=== PATIENT | male | born 1935 | race Caucasian/White ===

== ENCOUNTER 2016-12-15 00:48 | Inpatient (IN) ==
[2016-12-15] MEDS ORDERED: diphenhydrAMINE CAP 25 MG CAPSULE PO PRN (01:34)
[2016-12-15] MEDS ORDERED: DOCUSATE SODIUM 100 MG CAPSULE PO PRN (01:34)
[2016-12-15] MEDS ORDERED: MORPHINE 2 MG/1 ML SYRINGE IV PRN ×2 (01:34→09:31)
[2016-12-15] MEDS ORDERED: ONDANSETRON 4 MG/2 ML VIAL IV PRN (01:34)
[2016-12-15] MEDS ORDERED: ZALEPLON 5 MG CAPSULE PO PRN (01:34)
[2016-12-15] MEDS ORDERED: guaiFENesin/DM ER 600-30 MG TABLET PO PRN (01:34)
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
[2016-12-15 01:56] LABS: Basophils % 0.3 % (0.0-0.8); Eosinophils % 0.4 % (0.00-10.9); Hematocrit 27.7 VOL% (42.0-52.0); Hemoglobin 9.1 GM/DL (14.0-18.0); Immature Granulocytes % 3.6 %; Immature Granulocytes Absolute 0.27 #; Lymphocytes # 0.9 10*3/uL (1.4-4.0); Lymphocytes % 11.7 % (21.2-54.2); Mean Corpuscular HGB Conc 32.9 GM/DL (32-36); Mean Corpuscular Hemoglobin 36 PG (27-34); Mean Corpuscular Volume 108.6 FL (87-102); Mean Platelet Volume 11.7 FL (9.6-12.0); Monocytes # 0.7 10*3/uL (0.11-0.8); Neutrophils # 5.5 10*3/uL (1.4-7.4); Platelet Count 62 T/CUMM (130-400); Red Blood Count 2.55 MC/CUMM (3.8-5.5); Red Cell Distribution Width 14.9 % (9.3-17.3); White Blood Count 7.4 T/CUMM (4-12)
[2016-12-15] MEDS ORDERED: SODIUM CHLORIDE 0.45% 1,000 ML IV SCH (02:00)
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
[2016-12-15 02:19] LABS: Albumin 3.6 G/DL (3.4-5.0); Bilirubin,Total 0.6 MG/DL (0.2-1.0); Calcium 8.1 MG/DL (8.5-10.1); Osmolality,Calculated 296.1 MOS/KG (273-304); Potassium 3.6 MMOL/L (3.5-5.1)
[2016-12-15 02:31] LABS: Apearance,Urine CLEAR (Clear); Bilirubin,Urine Negative (Negative); Blood, Urine Negative (Negative); Glucose,Urine (UA) Negative (Negative); Ketones,Urine Negative (Negative); Nitrite,Urine Negative (Negative); Protein,Urine Negative; RBC,Urine 1 /HPF (0-4); Urine Color Straw (Yellow); Urine Specific Gravity 1.013 (1.001-1.035); Urine Urobilinogen < 2.0 EU/DL (0.2-1.0); WBC,Urine 3 /HPF (0-6)
[2016-12-15] MEDS ORDERED: SODIUM CHLORIDE 0.9% 250 ML IV PRN (04:00)
[2016-12-15 04:43] LABS: Lymphocytes 12 % (20-55); Segmented Neutrophils 81 % (50-85)
[2016-12-15 04:45] LABS: Band Neutrophils 1 % (0-10); Metamyelocytes 4 %; Total Cells Counted 100
[2016-12-15 04:52] LABS: Anisocytosis 1+; Platelet Estimate Decreased
[2016-12-15 07:00] LABS: INR 1.1; PT Patient Result 11.5 SECS
[2016-12-15 07:14] LABS: % Iron Saturation 39.5 % (18-50); Ferritin 97.1 ng/ml (26-388)
[2016-12-15 07:25] LABS: Folate 20.6 NG/ML (5.4-24.0)
--- NOTE | 2016-12-15 07:37 | EKG Report ---
Stationary ECG Study [facility] Test Date: 12/15/2016 7:37:45 AM Pat Name: JARETT RAJAN Department: Room: 323 Gender: M Etiology Teacher: : 1935 Requested by: José Antonio Gamboa Order Number: [id number] Reading MD: QUINN DRAKE Intervals [place] Rate: 80 P: 999 MO: 0 QRS: -17 QRSD: 90 T: 39 QT: 364 QTc: 400 Interpretive Statements SINUS RHYTHM WITH PACS ABNORMAL RHYTHM ECG Electronically Signed On 12-15-16 18:19:03 RADIOLOGICAL ENGINEER by QUINN DRAKE [email or web address]
[2016-12-15 07:53] LABS: Apearance,Urine CLEAR (Clear); Bilirubin,Urine Negative (Negative); Blood, Urine Negative (Negative); Glucose,Urine (UA) Negative (Negative); Ketones,Urine 5 mg/dL (Negative); Mucus,Urine Occasional /LPF (Occasional); Nitrite,Urine Negative (Negative); Protein,Urine Negative; RBC,Urine 1 /HPF (0-4); Urine Color Straw (Yellow); Urine Specific Gravity 1.009 (1.001-1.035); Urine Urobilinogen < 2.0 EU/DL (0.2-1.0); WBC,Urine 1 /HPF (0-6)
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
[2016-12-15] MEDS: PANTOPRAZOLE 40 MG TABLET PO SCH (08:11)
[2016-12-15] MEDS ORDERED: ROCURONIUM 100 MG/10 ML VIAL IV ONE (08:22)
[2016-12-15] MEDS ORDERED: LIDOCAINE 2% 5 ML VIAL ONE (08:22)
[2016-12-15] MEDS ORDERED: ONDANSETRON 4 MG/2 ML VIAL ONE (08:22)
[2016-12-15] MEDS ORDERED: ETOMIDATE 20 MG/10 ML VIAL IV ONE (08:22)
--- NOTE | 2016-12-15 08:37 | XRay Report ---
Portable chest Date:[12/15/2016] Clinical history: Respiratory preoperative evaluation Comparison: 01/30/2015 Technique: Portable AP sitting chest Findings: The heart is minimally enlarged with constipation would not. Expiratory chest with atelectasis at the lung bases and chronic scarring. Stable mediastinum and osseous structures. Impression: Expiratory chest. Chronic scarring with minimal atelectasis at the lung bases. Minimal cardiomegaly. PROCEDURE INTERPRETED AT [facility] DEPARTMENT OF RADIOLOGY Final Report Signed by: Dr. Ayleen Sandy
--- NOTE | 2016-12-15 08:39 | XRay Report ---
Exam: XR hip 2V LT Date: 12/15/2016 1:14 AM Comparison: 09/27/2009 Indication: Left hip pain after fall, hip deformity Technique: AP and lateral left hip Findings: Acute displaced left intertrochanteric femoral fracture. There is upward displacement of the distal fracture fragment. Old healed right pubic bone fractures. Minimal hip joint space narrowing. Impression: Acute displaced left intertrochanteric femoral fracture. Minimal D. ISABELL. Old healed right pubic bone fractures. PROCEDURE INTERPRETED AT [facility] DEPARTMENT OF RADIOLOGY Final Report Signed by: Dr. Ayleen Sandy
[2016-12-15] MEDS ORDERED: TRANEXAMIC ACID 1,000 MG/10 ML VIAL IV ONE (08:44)
[2016-12-15] MEDS ORDERED: BACITRACIN OINT 0.9 GM PACK TOP ONE (09:09)
[2016-12-15 09:15] LABS: Apearance,Urine CLEAR (Clear); Bilirubin,Urine Negative (Negative); Blood, Urine Large mg/dL (Negative); Glucose,Urine (UA) Negative (Negative); Ketones,Urine Negative (Negative); Nitrite,Urine Negative (Negative); Protein,Urine Negative; RBC,Urine 182 /HPF (0-4); Urine Color Straw (Yellow); Urine Specific Gravity 1.008 (1.001-1.035); Urine Urobilinogen < 2.0 EU/DL (0.2-1.0); WBC,Urine 3 /HPF (0-6)
--- NOTE | 2016-12-15 09:30 | Operative Note ---
Date of procedure: 12/15/16 Procedure: DIAGNOSIS: Left hip intertrochanteric fracture PROCEDURE: Left ORIF hip (CPT# 98940) SURGEON: Morgan ANESTHESIA: General PROCEDURE and FINDINGS: After adequate anesthesia was induced, the patient was placed on the fracture table. A provisional reduction was obtained. The limb was prepped and draped in the usual sterile fashion. Lateral approach to the proximal femur was made. Skin, subcutaneous tissue and iliotibial band were incised. Vastus lateralis was elevated from the intramuscular septum and lateral aspect of the femur. Guidepin was placed, overreamed, and tapped. A 90 mm hip screw was placed followed by a 135 degree 3-hole plate. Screw holes were filled. Wound was irrigated. Iliotibial band was repaired with O Vicryl [id number] sutures. Subcutaneous tissues were repaired deep with 2-0 Vicryl runner and superficially with 3-0 interrupted Vicryl suture. Chestnutridge were used to approximate the skin. Sterile occlusive dressing and bacitracin were applied. EBL: 20 mL Surgeon / Physician: Tremaine Mora Jr. Results - Labs CBC & BMP: 12/15/16 01:44 12/15/16 01:44
[2016-12-15] MEDS ORDERED: MAGNESIUM HYDROXIDE SUSP 30 ML UDCUP PO PRN (09:31)
--- NOTE | 2016-12-15 09:48 | XRay Report ---
Exam: XR hip 2V LT Date: 12/15/2016 12:00 AM Comparison: 12/15/2016 Indication: Compression left hip Technique: Fluoroscopy time of 31 seconds documented. AP and lateral C-arm films obtained. . Findings: The left intertrochanteric femoral fracture is in satisfactory position and alignment for healing after insertion of sideplate and screws Impression: Satisfactory internal fixation of the acute displaced left intertrochanteric femoral fracture. The fracture appears to be in satisfactory position and alignment for healing. PROCEDURE INTERPRETED AT [facility] DEPARTMENT OF RADIOLOGY Final Report Signed by: Dr. Ayleen Sandy
[2016-12-15] MEDS ORDERED: KETOROLAC 15 MG/1 ML VIAL ONE (09:59)
[2016-12-15] MEDS: KETOROLAC 15 MG/1 ML VIAL IV SCH ×3 (10:02→22:34)
[2016-12-15] MEDS: DEXT 5% NACL 0.45% KCL 40 MEQ 40 MEQ/1,000 ML BAG IV SCH (11:04)
--- NOTE | 2016-12-15 11:40 | Anesthesia ---
Anesthesia Post OP - Post Ansesthetic Evaluation Patient seen in post op: Yes Resp: within normal limits CV: within normal limits Mental: within normal limits Temp: within normal limits [id number]: within normal limits Nausea and Vomiting: within normal limits Pain: within normal limits
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
--- NOTE | 2016-12-15 12:47 | EKG Report ---
Stationary ECG Study [facility] Test Date: 12/15/2016 12:45:36 PM Pat Name: JARETT RAJAN Department: Room: 323 Gender: M Bridge Repair Crew Person: : 1935 Requested by: Tim Sloan Order Number: [id number] Reading MD: QUINN DRAKE Intervals [place] Rate: 70 P: 999 [place]: 0 QRS: -14 QRSD: 82 T: 40 QT: 397 QTc: 418 Interpretive Statements NORMAL SINUS RHYTHM Electronically Signed On 12-15-16 18:31:46 [employer] SALES REPRESENTATIVE by QUINN DRAKE [id number]
[2016-12-15] MEDS ORDERED: SODIUM CHLORIDE 0.9% 1,000 ML IV ONE (13:30)
[2016-12-15] MEDS ORDERED: SEVOFLURANE 1 UNIT/15 MINUTE INH ONE (13:30)
[2016-12-15] MEDS ORDERED: fentaNYL 100 MCG/2 ML VIAL ONE (13:30)
[2016-12-15] MEDS ORDERED: SODIUM CHLORIDE 0.9% 100 ML IV ONE (13:30)
[2016-12-15] MEDS ORDERED: MIDAZOLAM 2 MG/2 ML VIAL ONE (13:30)
--- NOTE | 2016-12-15 15:07 | Orthopedic Progress Note ---
Assessment and Plan (1) Intertrochanteric fracture of left hip Status: Acute Current Visit: Yes Qualifiers: Encounter type: initial encounter Fracture type: closed Qualified Code(s) : S72.142A - Displaced intertrochanteric fracture of left femur, initial encounter for closed fracture Orthopedics - Subjective Interval history: Mr. Waldrop is comfortable postoperatively. Left lower extremity shows dressing is dry. Patient is neurovascularly unchanged. Plan: Continue with postoperative orders. Exam - Constitutional Vitals: Period Temp Pulse Resp BP Sys/Callahan Pulse Ox Last 24 Hr 97.2 F-99.4 F 58-93 14-20 109-149/49-89 92-100 Results - Labs CBC & BMP: 12/15/16 01:44 12/15/16 01:44 Quality Measures - VTE Contraindication to Pharmacological VTE Prophylaxis: Thrombocytopenia - Stroke Onset of Symptoms Date: 12/15/16
[2016-12-16] MEDS: KETOROLAC 15 MG/1 ML VIAL IV SCH (03:46)
[2016-12-16] MEDS: DEXT 5% NACL 0.45% KCL 40 MEQ 40 MEQ/1,000 ML BAG IV SCH (03:47)
[2016-12-16 05:37] LABS: Basophils % 0.4 % (0.0-0.8); Eosinophils # 0.1 10*3/uL (0.0-0.87); Eosinophils % 1.2 % (0.00-10.9); Hematocrit 27.2 VOL% (42.0-52.0); Hemoglobin 9.3 GM/DL (14.0-18.0); Immature Granulocytes % 2.1 %; Immature Granulocytes Absolute 0.19 #; Lymphocytes # 1.2 10*3/uL (1.4-4.0); Lymphocytes % 13.4 % (21.2-54.2); Mean Corpuscular HGB Conc 34.2 GM/DL (32-36); Mean Corpuscular Hemoglobin 34 PG (27-34); Mean Corpuscular Volume 98.6 FL (87-102); Mean Platelet Volume 11.5 FL (9.6-12.0); Monocytes # 1.1 10*3/uL (0.11-0.8); Neutrophils # 6.3 10*3/uL (1.4-7.4); Neutrophils % 70.9 % (38.7-73.9); Platelet Count 79 T/CUMM (130-400); Red Blood Count 2.76 MC/CUMM (3.8-5.5); Red Cell Distribution Width 18.3 % (9.3-17.3); White Blood Count 8.9 T/CUMM (4-12)
[2016-12-16 06:06] LABS: Calcium 7.6 MG/DL (8.5-10.1); Osmolality,Calculated 290.4 MOS/KG (273-304); Potassium 4.1 MMOL/L (3.5-5.1)
[2016-12-16 06:15] LABS: Band Neutrophils 1 % (0-10); Eosinophils 1 % (0-10); Lymphocytes 12 % (20-55); Platelet Estimate Decreased; Polychromasia Slight; Segmented Neutrophils 77 % (50-85); Total Cells Counted 100
--- NOTE | 2016-12-16 07:19 | EKG Report ---
Stationary ECG Study [facility] Test Date: 12/16/2016 7:17:52 AM Pat Name: JARETT RAJAN Department: Room: 323 Gender: M Outreach Representative: OKSANA : 1935 Requested by: Tim Sloan Order Number: [id number] Reading MD: CL CHOWDHURY Intervals [place] Rate: 71 P: 50 IN: 234 QRS: -8 QRSD: 90 T: 53 QT: 366 QTc: 388 Interpretive Statements SINUS RHYTHM WITH PROLONGED IN INTERVAL WITH OCCASIONAL SUPRAVENTRICULAR PREMATURE COMPLEXES Electronically Signed On 12-16-16 22:32:50 [employer] by LC CHOWDHURY [email or web address]
--- NOTE | 2016-12-16 09:09 | Orthopedic Progress Note ---
Assessment and Plan (1) Intertrochanteric fracture of left hip Status: Acute Current Visit: Yes Qualifiers: Encounter type: initial encounter Fracture type: closed Qualified Code(s) : S72.142A - Displaced intertrochanteric fracture of left femur, initial encounter for closed fracture Orthopedics - Subjective Interval history: Mr Siddiqui is comfortable this am. LLE nv unchanged. Dressing is dry. Mobilize with therapy. Stop IVF. SCDs for DVT prophylaxis. Exam - Constitutional Vitals: Period Temp Pulse Resp BP Sys/Callahan Pulse Ox Last 24 Hr 97.2 F-99.5 F 58-86 14-20 109-149/65-89 92-100 Results - Labs CBC & BMP: 12/16/16 05:14 12/16/16 05:14 Quality Measures - VTE Contraindication to Pharmacological VTE Prophylaxis: Thrombocytopenia - Stroke Onset of Symptoms Date: 12/15/16
[2016-12-16] MEDS: PANTOPRAZOLE 40 MG TABLET PO SCH (09:21)
--- NOTE | 2016-12-16 11:34 | Hospitalist Progress Note ---
Assessment and Plan (1) Intertrochanteric fracture of left hip Status: Acute Current Visit: Yes Qualifiers: Encounter type: initial encounter Fracture type: closed Qualified Code(s) : S72.142A - Displaced intertrochanteric fracture of left femur, initial encounter for closed fracture (2) Status post open reduction with internal fixation of fracture Status: Acute Current Visit: Yes (3) Hypertension Status: Acute Current Visit: Yes (4) Macrocytic anemia Status: Acute Current Visit: Yes (5) Thrombocytopenia Status: Acute Current Visit: Yes (6) History of smoking Status: Acute Assessment and plan: Plan: 12/15: Etiology for his anemia and thrombocytopenia is not quite clear, as he is not aware of this. He denies a drinking history during my evaluation. We'll go ahead and transfuse him a unit of platelets and check coag profile prior to operative fixation of his femur fracture. Supportive care for pain, monitor blood pressure and blood counts. Check iron studies/B12/folate 12/16: H&H stable, platelet count stable. Continue physical therapy, awaiting swing bed placement soon. Home meds reconciled. Current Visit: Yes Hospitalist: Subjective Interval history: Mr. Waldrop is resting comfortably. He has no complaints at this time. Minimal soreness to the left hip, working with PT. He denies a history of heavy alcohol consumption, states he hasn't smoked in many years. He is not aware of any liver disease or low platelet count to his knowledge Exam - Constitutional Vitals: Period Temp Pulse Resp BP Sys/Callahan Pulse Ox Last 24 Hr 97.8 F-99.5 F 58-86 14-20 109-139/65-87 94-99 Exam: EXAM: CONSTITUTIONAL: non toxic, NAD, hard of hearing HEENT: NC, AT, OP poor dentition, LISANDRO, EOMI CV: RRR no m/g/r RESP: clear B/L, prolonged expiratory phase, no wheezes rales or rhonchi GI: abd soft, NT, ND, +bowel sounds INTEGUMENTARY: no lesions or rash EXTREMITIES: Left lower extremity dressing clean dry and intact, pedal pulses intact NEURO: no focal deficits PSYCH: Awake and alert Results - Labs CBC & BMP: 12/16/16 05:14 12/16/16 05:14 Lab Results: I have reviewed the past 24 hour labs - Diagnostic Findings Procedure: X-ray: image reviewed by me, report reviewed by me Quality Measures - VTE Contraindication to Pharmacological VTE Prophylaxis: Thrombocytopenia - Stroke Onset of Symptoms Date: 12/15/16
--- NOTE | 2016-12-16 14:09 | Cardiology Progress Note ---
I, Kalli Barnes RN, am scribing for, and in the presence of, Jt Dominique MD 14:05. Assessment and Plan - Time spent with patient Time spent with patient: Less than 30 minutes (1) AV block Status: Acute Assessment and plan: Based on review of his ECGs I do not find significant evidence for AV block that is pathological. ECG today as are as noted is really unremarkable with PACs. Echocardiogram is ordered and is pending. Continue brokerage purchase and sale clerk. Current Visit: Yes (2) Status post open reduction with internal fixation of fracture Status: Acute Assessment and plan: Gen. he seems to be stable from this. Current Visit: Yes (3) Anemia Status: Acute Current Visit: Yes (4) History of smoking Status: Chronic Current Visit: Yes (5) Hypertension Status: Chronic Assessment and plan: Blood pressures generally are stable. Current Visit: Yes (6) Thrombocytopenia Status: Acute Assessment and plan: He remains thrombocytopenic. Current Visit: Yes Cardiology - PN: Subj Interval history: Patient is resting quietly in bed with no acute distress or needs noted. Drowsy but will rouse easily to verbal stimuli. Denies chest pain, shortness of breath , dizziness, palpitation, presyncope, or other cardiac complaint. He is POD #1 s /p ORIF left hip fracture. Surgical dsg dry/intact. Vitals stable with BP 135/ 78 and heart rate in 80's, regular. Transfused with 1 unit PRBC's and 1 unit platelets yesterday for H/H 9.1 & 27.7 and platelet count 62 with some improvement today. Echocardiogram ordered for this morning and is pending. 12 lead EKG this morning demonstrates sinus rhythm with first degree AVB. He is really not have any prior cardiac history. His ECG this morning reveal sinus rhythm with what is probably nonconducted PAC at 1. then later with another PAC that is conducted. The PAC nonconducted cons very early and is actually in the latter portion of the T-wave. Reviewing his ECGs are not overly impressed that he has a AV conduction disorder significance. Labs reviewed: WBC 8.9, RBC 2.76, H/H 9.3 & 27.2, platelets 79, sodium 147, potassium 4.1, creatinine 0.9 with BUN 9. Exam (Progress Note) - Constitutional Vitals: Period Temp Pulse Resp BP Sys/Callahan Pulse Ox Last 24 Hr 97.8 F-99.5 F 60-86 14-20 109-139/66-87 94-99 General appearance: no acute distress - Head Head exam: Present: contusion, other (facial especially right lateral face bruising.). Absent: abrasion - Eye Eye exam: Present: other (large bruising right eye) Pupils: Absent: dilated, fixed - ENT ENT exam: Present: normal external ear exam - Neck Neck exam: Absent: tenderness - Respiratory Respiratory exam: Present: clear to auscultation bilaterally. Absent: rales, rhonchi, stridor - Cardiovascular Cardiovascular exam: Present: regular rate and rhythm. Absent: bradycardia, diastolic murmur, systolic murmur, tachycardia - GI/Abdominal GI/Abdominal exam: Present: normal bowel sounds, soft. Absent: ascites, distended, mass, tenderness - Extremities Exam Extremities exam: Present: normal capillary refill, other (left hip sx dsg dry/ intact). Absent: full ROM, calf tenderness, edema - Neurological Exam Neurological exam: Present: alert - Psychiatric Psychiatric exam: Present: normal affect. Absent: agitated, anxious - Skin Skin exam: Present: warm, dry. Absent: cyanosis, diaphoretic Result/EKG - Labs CBC & BMP: 12/16/16 05:14 12/16/16 05:14 Lab Results: I have reviewed the past 24 hour labs Labs: Laboratory Results - last 24 hr 12/15/16 12/16/16 12/16/16 06:16 05:14 05:14 WBC 8.9 RBC 2.76 L Hgb 9.3 L Hct 27.2 L MCV 98.6 MCH 34 MCHC 34.2 RDW 18.3 H Plt Count 79 L D MPV 11.5 Neut % (Auto) 70.9 Lymph % (Auto) 13.4 L [place] % (Auto) 12.0 Eos % (Auto) 1.2 Baso % (Auto) 0.4 Neut # (Auto) 6.3 Lymph # (Auto) 1.2 L [place] # (Auto) 1.1 H Eos # (Auto) 0.1 Baso # (Auto) 0.0 Total Counted 100 Immature Gran % 2.1 Nucleated RBC % 0.0 Immature Gran # 0.19 Segmented Neutrophils 77 Band Neutrophils 1 Lymphocytes 12 L Monocytes 9 Eosinophils 1 Nucleated RBCs # 0.00 Platelet Estimate Decreased Polychromasia Slight Sodium 147 H Potassium 4.1 Chloride 113 H Carbon Dioxide 24 Anion Gap 14.1 BUN 9 Creatinine 0.90 GFR Calculation 80 BUN/Creatinine Ratio 10.00 Glucose 94 Calculated Osmolality 290.4 Calcium 7.6 L Blood Type O POSITIVE Antibody Screen Negative Crossmatch See Detail - Impressions Impressions: ECG today with sinus rhythm with one early PAC nonconductive but another PAC that comes later in the cycle that is conducted. - Diagnostic Findings Procedure: Chest x-ray: report reviewed by me (2/ minimal cardiomegaly. chronic scarring with minimal atelectasis at lung bases) - EKG EKG results: interpreted by me EKG shows: sinus rhythm Quality Measures - VTE Contraindication to Pharmacological VTE Prophylaxis: Thrombocytopenia - Stroke Onset of Symptoms Date: 12/15/16 Trip Brown John Timothy, MD, personally performed the services described in this documentation, ascribed by Kalli Barnes RN in my presence, and it is both accurate and complete .
[2016-12-16] MEDS: ENALAPRIL 10 MG TABLET PO SCH (20:16)
[2016-12-17 06:57] LABS: Basophils % 0.4 % (0.0-0.8); Eosinophils % 0.4 % (0.00-10.9); Hematocrit 29.4 VOL% (42.0-52.0); Hemoglobin 9.9 GM/DL (14.0-18.0); Immature Granulocytes % 1.9 %; Immature Granulocytes Absolute 0.22 #; Lymphocytes # 0.9 10*3/uL (1.4-4.0); Lymphocytes % 7.8 % (21.2-54.2); Mean Corpuscular HGB Conc 33.7 GM/DL (32-36); Mean Corpuscular Hemoglobin 33 PG (27-34); Mean Platelet Volume 12.1 FL (9.6-12.0); Monocytes # 1.2 10*3/uL (0.11-0.8); Monocytes % 10.9 % (1.7-12.7); Neutrophils # 8.9 10*3/uL (1.4-7.4); Neutrophils % 78.6 % (38.7-73.9); Platelet Count 67 T/CUMM (130-400); Red Blood Count 2.97 MC/CUMM (3.8-5.5); Red Cell Distribution Width 17.2 % (9.3-17.3); White Blood Count 11.3 T/CUMM (4-12)
[2016-12-17 07:18] LABS: Calcium 7.9 MG/DL (8.5-10.1); Osmolality,Calculated 286.7 MOS/KG (273-304); Potassium 4.2 MMOL/L (3.5-5.1)
[2016-12-17 07:22] LABS: Eosinophils 1 % (0-10); Hypochromasia Slight; Lymphocytes 9 % (20-55); Platelet Estimate Decreased; Segmented Neutrophils 82 % (50-85); Total Cells Counted 100
--- NOTE | 2016-12-17 07:31 | Orthopedic Progress Note ---
Assessment and Plan (1) Intertrochanteric fracture of left hip Status: Acute Current Visit: Yes Qualifiers: Encounter type: initial encounter Fracture type: closed Qualified Code(s) : S72.142A - Displaced intertrochanteric fracture of left femur, initial encounter for closed fracture Orthopedics - Subjective Interval history: Mr Waldrop is improving. He was able to ambulate in his room yesterday. Dressing dry. Left lower extremity neurovascularly unchanged. Plan: Continue with physical therapy. Discharge planning Exam - Constitutional Vitals: Period Temp Pulse Resp BP Sys/Callahan Pulse Ox Last 24 Hr 97.7 F-99.5 F 81-100 16-20 129-148/78-90 92-98 Results - Labs CBC & BMP: 12/17/16 06:25 12/17/16 06:25 Quality Measures - VTE Contraindication to Pharmacological VTE Prophylaxis: Thrombocytopenia - Stroke Onset of Symptoms Date: 12/15/16
--- NOTE | 2016-12-17 08:29 | ECHO Report ---
Artur Waldrop 12/16/2016 Exam Date: 10:04 Referring Physician: Bonnie NASHTechnologist: Age: 81 Ht (in): Wt (lb): MExam Location: [facility] Gender: Echo [id number]: fracture Lt.Hip, HTN, AV Block, throIndications:bocytopenia, macroytic anemia BP: / HR: SinusRhythm: Technical Quality: IMPRESSIONS 1. The left ventricle is normal size and normal systolic function. The ejection fraction is 55+ percent. There is mild concentric left ventricular hypertrophy with mild diastolic dysfunction. 2. Right atrium and right ventricle are both mildly dilated. 3. Left atrium is normal size. 4. Mitral valve is mildly thickened but with normal Doppler. 5. There valve is barely sclerotic but Doppler is normal. 6. There is at least mild tricuspid regurgitation without evidence for elevated right-sided pressures. MEASUREMENTS (Male / Female) Normal Values 2D ECHO LV Diastolic Diameter PLAX 3.3 cm 4.2 - 5.9 / 3.9 - 5.3 cm LV Systolic Diameter PLAX 2.0 cm LV Fractional Shortening PLAX 37.6 % IVS Diastolic Thickness 1.3 cm 0.6 - 1.0 / 0.6 - 0.9 cm LVPW Diastolic Thickness 0.9 cm 0.6 - 1.0 / 0.6 - 0.9 cm RV Internal Dim ED PLAX 2.7 cm Aortic Root Diameter 2.7 cm LA Systolic Diameter LX 3.3 cm 3.0 - 4.0 / 2.7 - 3.8 cm DOPPLER TR Peak Velocity 205.0 cm/s TR Peak Gradient 16.8 mmHg FINDINGS Left Ventricle Left ventricle is normal size and normal systolic function with ejection fraction of 55+ percent. No specific segmental wall motion abnormality is noted. There is mild concentric left ventricular hypertrophy with mild diastolic dysfunction present. Right Ventricle Mildly increased right ventricular size. Right Atrium The right atrium is mildly enlarged. Left Atrium Normal left atrial size. Mitral Valve Mildly thickened mitral valve with trace mitral regurgitation. Aortic Valve Aortic valve sclerosis without stenosis or regurgitation. Tricuspid Valve Morphologically normal tricuspid valve. Mild tricuspid valve regurgitation. Tricuspid regurgitation velocities suggest a PAP of 16.8 mmHg + RAP. Pulmonic Valve Morphologically normal pulmonic valve. Trace pulmonary valve regurgitation. Pericardium No pericardial effusion. Aorta Normal size aortic root and proximal ascending aorta. Jt Dominique MD (Electronically Signed) 16 December 2016 Final Date: 19:59
[2016-12-17] MEDS ORDERED: NON-FORMULARY MEDICATION (Esomeprazole Magnesium [Nexium] 40 MG) PO SCH (09:00)
[2016-12-17] MEDS: TAMSULOSIN 0.4 MG CAPSULE PO SCH (09:15)
[2016-12-17] MEDS: amLODIPine 5 MG TABLET PO SCH (09:16)
[2016-12-17] MEDS: FINASTERIDE 5 MG TABLET PO SCH (09:17)
[2016-12-17] MEDS: PANTOPRAZOLE 40 MG TABLET PO SCH (09:17)
[2016-12-17] MEDS: predniSONE 10 MG TABLET PO SCH (09:17)
[2016-12-17] MEDS: ENALAPRIL 10 MG TABLET PO SCH ×2 (09:18→22:18)
--- NOTE | 2016-12-17 12:41 | Hospitalist Progress Note ---
Assessment and Plan (1) Intertrochanteric fracture of left hip Status: Acute Current Visit: Yes Qualifiers: Encounter type: initial encounter Fracture type: closed Qualified Code(s) : S72.142A - Displaced intertrochanteric fracture of left femur, initial encounter for closed fracture (2) Status post open reduction with internal fixation of fracture Status: Acute Current Visit: Yes (3) Hypertension Status: Chronic Current Visit: Yes (4) Macrocytic anemia Status: Chronic Current Visit: Yes (5) Thrombocytopenia Status: Chronic Current Visit: Yes (6) History of smoking Status: Chronic Assessment and plan: Plan: 12/15: Etiology for his anemia and thrombocytopenia is not quite clear, as he is not aware of this. He denies a drinking history during my evaluation. We'll go ahead and transfuse him a unit of platelets and check coag profile prior to operative fixation of his femur fracture. Supportive care for pain, monitor blood pressure and blood counts. Check iron studies/B12/folate 12/16: H&H stable, platelet count stable. Continue physical therapy, awaiting swing bed placement soon. Home meds reconciled. 12/17: Blood counts are stable. At this point we are awaiting placement. Once accepted, he may be discharged. Current Visit: Yes Hospitalist: Subjective Interval history: Mr. Waldrop had an uneventful night. He is currently sitting up in bed eating lunch. I talked to the social studies department chair, hopefully planning for discharge tomorrow to swing bed. Patient has no complaints. Exam - Constitutional Vitals: Period Temp Pulse Resp BP Sys/Callahan Pulse Ox Last 24 Hr 97.7 F-99.6 F 76-100 16-20 119-151/74-90 92-98 Exam: EXAM: CONSTITUTIONAL: non toxic, NAD, hard of hearing HEENT: NC, AT, OP poor dentition, LISANDRO, EOMI CV: RRR no m/g/r RESP: clear B/L, prolonged expiratory phase, no wheezes rales or rhonchi GI: abd soft, NT, ND, +bowel sounds INTEGUMENTARY: no lesions or rash EXTREMITIES: Left lower extremity dressing clean dry and intact, pedal pulses intact NEURO: no focal deficits PSYCH: Awake and alert Results - Labs CBC & BMP: 12/17/16 06:25 12/17/16 06:25 Lab Results: I have reviewed the past 24 hour labs Quality Measures - VTE Contraindication to Pharmacological VTE Prophylaxis: Thrombocytopenia - Stroke Onset of Symptoms Date: 12/15/16
--- NOTE | 2016-12-17 18:45 | Cardiology Progress Note ---
Cameron Brown Vanessa, RN, am scribing for, and in the presence of, Jt Dominique MD 18:43. Assessment and Plan - Time spent with patient Time spent with patient: Less than 30 minutes (1) AV block Status: Acute Assessment and plan: This does not appear to be significant. He does have first-degree AV block. Current Visit: Yes (2) Status post open reduction with internal fixation of fracture Status: Acute Assessment and plan: Continues to be stable post operatively. Current Visit: Yes (3) Anemia Status: Acute Current Visit: Yes (4) History of smoking Status: Chronic Current Visit: Yes (5) Hypertension Status: Chronic Assessment and plan: Blood pressures fairly controlled currently Current Visit: Yes (6) Thrombocytopenia Status: Chronic Assessment and plan: Remains thrombocytopenic. Defer treatment to hospitalist. Current Visit: Yes Cardiology - PN: Subj Interval history: Resting quietly this morning. No acute findings or changes in patient's hemodynamic status overnight. No chest discomfort, dyspnea, dizziness, palpitation, presyncope, or other. POD #2 s/p ORIF left hip fracture. Left hip sx dry/intact. H/H stable at 9.9 & 29.4, and he has not required further transfusion. No dysrhythmia per tele monitoring. Regular rhythm with PAC is seen. Echocardiogram yesterday and findings reviewed. Afebrile, vitals stable. His echocardiogram reveals left ventricular function to be normal in normal size. It worse mild concentric left ventricular hypertrophy and diastolic dysfunction. There is no other significant abnormalities noted. The patient's fall is not a sound to be cardiac. Labs reviewed: H/H as noted above, potassium 4.2. Thrombocytopenia noted. Exam (Progress Note) - Constitutional Vitals: Period Temp Pulse Resp BP Sys/Callahan Pulse Ox Last 24 Hr 97.7 F-99.2 F 89-100 16-20 131-148/78-90 92-98 Exam: General appearance: no acute distress - Head Head exam: Present: contusion, other (facial especially right lateral face bruising.). Absent: abrasion - Eye Eye exam: Present: other (large bruising right eye) Pupils: Absent: dilated, fixed - ENT ENT exam: Present: normal external ear exam - Neck Neck exam: Absent: tenderness - Respiratory Respiratory exam: Present: clear to auscultation bilaterally. Absent: rales, rhonchi, stridor - Cardiovascular Cardiovascular exam: Present: regular rate and rhythm. Absent: bradycardia, diastolic murmur, systolic murmur, tachycardia - GI/Abdominal GI/Abdominal exam: Present: normal bowel sounds, soft. Absent: ascites, distended, mass, tenderness - Extremities Exam Extremities exam: Present: normal capillary refill, other (left hip sx dsg dry/ intact). Absent: full ROM, calf tenderness, edema - Neurological Exam Neurological exam: Present: alert - Psychiatric Psychiatric exam: Present: normal affect. Absent: agitated, anxious - Skin Skin exam: Present: warm, dry. Absent: cyanosis, diaphoretic Result/EKG - Labs CBC & BMP: 12/17/16 06:25 12/17/16 06:25 Lab Results: I have reviewed the past 24 hour labs Labs: Laboratory Results - last 24 hr 12/15/16 12/17/16 12/17/16 06:16 06:25 06:25 WBC 11.3 RBC 2.97 L Hgb 9.9 L Hct 29.4 L MCV 99.0 MCH 33 MCHC 33.7 RDW 17.2 Plt Count 67 L MPV 12.1 H Neut % (Auto) 78.6 H Lymph % (Auto) 7.8 L [place] % (Auto) 10.9 Eos % (Auto) 0.4 Baso % (Auto) 0.4 Neut # (Auto) 8.9 H Lymph # (Auto) 0.9 L [place] # (Auto) 1.2 H Eos # (Auto) 0.0 Baso # (Auto) 0.0 Total Counted 100 Immature Gran % 1.9 Nucleated RBC % 0.0 Immature Gran # 0.22 Segmented Neutrophils 82 Lymphocytes 9 L Monocytes 8 Eosinophils 1 Nucleated RBCs # 0.00 Platelet Estimate Decreased Hypochromasia Slight Sodium 145 Potassium 4.2 Chloride 111 H Carbon Dioxide 21 Anion Gap 17.2 H BUN 12 Creatinine 0.80 GFR Calculation 84 BUN/Creatinine Ratio 15.00 Glucose 81 Calculated Osmolality 286.7 Calcium 7.9 L Blood Type O POSITIVE Antibody Screen Negative Crossmatch See Detail - Impressions Impressions: Telemetry was sinus rhythm without any dysrhythmias or conduction abnormalities. - EKG EKG results: interpreted by me, no acute changes EKG shows: sinus rhythm (PAC's noted) Quality Measures - VTE Contraindication to Pharmacological VTE Prophylaxis: Thrombocytopenia - Stroke Onset of Symptoms Date: 12/15/16 Trip Brown John Timothy, MD, personally performed the services described in this documentation, ascribed by Kalli Barnes RN in my presence, and it is both accurate and complete [id number] .
[2016-12-18 06:14] LABS: Basophils % 0.3 % (0.0-0.8); Eosinophils # 0.1 10*3/uL (0.0-0.87); Hematocrit 28.2 VOL% (42.0-52.0); Hemoglobin 9.4 GM/DL (14.0-18.0); Immature Granulocytes % 2.2 %; Lymphocytes # 1.1 10*3/uL (1.4-4.0); Lymphocytes % 12.8 % (21.2-54.2); Mean Corpuscular HGB Conc 33.3 GM/DL (32-36); Mean Corpuscular Hemoglobin 34 PG (27-34); Mean Corpuscular Volume 101.1 FL (87-102); Mean Platelet Volume 11.5 FL (9.6-12.0); Monocytes # 0.9 10*3/uL (0.11-0.8); Monocytes % 10.1 % (1.7-12.7); Neutrophils # 6.6 10*3/uL (1.4-7.4); Neutrophils % 73.6 % (38.7-73.9); Platelet Count 66 T/CUMM (130-400); Red Blood Count 2.79 MC/CUMM (3.8-5.5); Red Cell Distribution Width 16.9 % (9.3-17.3); White Blood Count 8.9 T/CUMM (4-12)
[2016-12-18 06:39] LABS: Band Neutrophils 1 % (0-10); Lymphocytes 8 % (20-55); Macrocytosis Slight; Platelet Estimate Decreased; Segmented Neutrophils 83 % (50-85); Total Cells Counted 100
--- NOTE | 2016-12-18 08:05 | Orthopedic Progress Note ---
Assessment and Plan (1) Intertrochanteric fracture of left hip Status: Acute Current Visit: Yes Qualifiers: Encounter type: initial encounter Fracture type: closed Qualified Code(s) : S72.142A - Displaced intertrochanteric fracture of left femur, initial encounter for closed fracture Orthopedics - Subjective Interval history: Mr. Waldrop is improving. Dressing clean, dry and intact. Left lower external ring neurovascularly unchanged. Plan: Discharge to [facility] when bed available. Posterior hip precautions for 3 months. Daily dry dressing changes. Arrange for walker and bedside commode for home use. Wear [place] hose for 1 month. Follow-up appointment in 4 weeks. Discontinue katlin and Steri-Strip wound on 12/26/2016. SCDs for DVT prophylaxis. Exam - Constitutional Vitals: Period Temp Pulse Resp BP Sys/Callahan Pulse Ox Last 24 Hr 98.5 F-99.6 F 68-109 16-18 114-132/72-78 95-96 Results - Labs CBC & BMP: 12/18/16 05:44 12/17/16 06:25 Quality Measures - VTE Contraindication to Pharmacological VTE Prophylaxis: Thrombocytopenia - Stroke Onset of Symptoms Date: 12/15/16
[2016-12-18] MEDS: ENALAPRIL 10 MG TABLET PO SCH (08:35)
[2016-12-18] MEDS: DEXT 5% NACL 0.45% KCL 40 MEQ 40 MEQ/1,000 ML BAG IV SCH (08:36)
[2016-12-18] MEDS: PANTOPRAZOLE 40 MG TABLET PO SCH (08:36)
[2016-12-18] MEDS: TAMSULOSIN 0.4 MG CAPSULE PO SCH (08:37)
[2016-12-18] MEDS: FINASTERIDE 5 MG TABLET PO SCH (08:38)
[2016-12-18] MEDS: amLODIPine 5 MG TABLET PO SCH (08:38)
[2016-12-18] MEDS: predniSONE 10 MG TABLET PO SCH (08:38)
--- NOTE | 2016-12-18 11:26 | Cardiology Progress Note ---
Cameron Brown Vanessa, RN, am scribing for, and in the presence of, Jt Dominqiue MD 11:24. Assessment and Plan - Time spent with patient Time spent with patient: Less than 30 minutes (1) AV block Status: Acute Assessment and plan: Does not appear to be significant. Does have first degree AV block. He has had no occurrence of any kind of significant AV block. Current Visit: Yes (2) Status post open reduction with internal fixation of fracture Status: Acute Assessment and plan: Continues to be stable post operatively. Current Visit: Yes (3) Anemia Status: Acute Current Visit: Yes (4) History of smoking Status: Chronic Current Visit: Yes (5) Hypertension Status: Chronic Assessment and plan: Blood pressures fairly controlled currently Current Visit: Yes (6) Thrombocytopenia Status: Chronic Assessment and plan: Remains thrombocytopenic. Defer treatment to hospitalist. Current Visit: Yes Cardiology - PN: Subj Interval history: No acute findings or changes in patient's hemodynamic status overnight. He is pain free without complaint of shortness of breath, presyncope, palpitation, or other. Afebrile, vitals stable with blood pressure averaging 130/80, pulse 70's and regular. campus monitor without arrhythmia observed and heart rates are stable and rhythm remains sinus. He's had no further conduction abnormalities. He is to be discharged to [facility] rehab later today for further treatment s /p ORIF left hip fracture. Labs reviewed: WBC 8.9, H/H 9.4 & 28.2 Exam (Progress Note) - Constitutional Vitals: Period Temp Pulse Resp BP Sys/Callahan Pulse Ox Last 24 Hr 97.3 F-99.6 F 68-109 16-18 114-134/67-78 95-98 Exam: General appearance: no acute distress - Head Head exam: Present: contusion, other (facial especially right lateral face bruising.). Absent: abrasion - Eye Eye exam: Present: other (large bruising right eye) Pupils: Absent: dilated, fixed - ENT ENT exam: Present: normal external ear exam - Neck Neck exam: Absent: tenderness - Respiratory Respiratory exam: Present: clear to auscultation bilaterally. Absent: rales, rhonchi, stridor - Cardiovascular Cardiovascular exam: Present: regular rate and rhythm. Absent: bradycardia, diastolic murmur, systolic murmur, tachycardia - GI/Abdominal GI/Abdominal exam: Present: normal bowel sounds, soft. Absent: ascites, distended, mass, tenderness - Extremities Exam Extremities exam: Present: normal capillary refill, other (left hip sx dsg dry/ intact). Absent: full ROM, calf tenderness, edema - Neurological Exam Neurological exam: Present: alert - Psychiatric Psychiatric exam: Present: normal affect. Absent: agitated, anxious - Skin Skin exam: Present: warm, dry. Absent: cyanosis, diaphoretic Result/EKG - Labs CBC & BMP: 12/18/16 05:44 12/17/16 06:25 Lab Results: I have reviewed the past 24 hour labs Labs: Laboratory Results - last 24 hr 12/18/16 05:44 WBC 8.9 RBC 2.79 L Hgb 9.4 L Hct 28.2 L MCV 101.1 MCH 34 MCHC 33.3 RDW 16.9 Plt Count 66 L MPV 11.5 Neut % (Auto) 73.6 Lymph % (Auto) 12.8 L [place] % (Auto) 10.1 Eos % (Auto) 1.0 Baso % (Auto) 0.3 Neut # (Auto) 6.6 Lymph # (Auto) 1.1 L [place] # (Auto) 0.9 H Eos # (Auto) 0.1 Baso # (Auto) 0.0 Total Counted 100 Immature Gran % 2.2 Nucleated RBC % 0.0 Immature Gran # 0.20 Segmented Neutrophils 83 Band Neutrophils 1 Lymphocytes 8 L Monocytes 8 Nucleated RBCs # 0.00 Platelet Estimate Decreased Macrocytosis Slight - Impressions Impressions: Telemetry was sinus rhythm with normal rates. Borderline first-degree AV block. He's had no conduction abnormalities demonstrated the last 48+ hours. - EKG EKG results: interpreted by me, sinus rhythm, no acute changes Quality Measures - VTE Contraindication to Pharmacological VTE Prophylaxis: Thrombocytopenia - Stroke Onset of Symptoms Date: 12/15/16 Specialty Discharge - Follow Up or Referrals Follow up with: Tremaine Mora Jr., MD [Physician] - 01/15/17 12:55 pm Trip Brown John Timothy, MD, personally performed the services described in this documentation, ascribed by Kalli Barnes RN in my presence, and it is both accurate and complete .
[2016-12-18 12:35] VITALS: BP 105/59
--- NOTE | 2016-12-18 13:10 | Discharge Summary ---
<Flo Romeo - Last Filed: 12/18/16 13:07> Specialty Discharge - Follow Up or Referrals Follow up with: Tremaine Mora Jr., MD [Physician] - 01/15/17 12:55 pm Discharge Plan - Discharge Data Disposition: Disch/Xfer-Ip Rehab Fac Condition at Discharge: Stable Discharge Diet: advance to your usual diet Activity: as per physical therapy - Discharge Medications New Morphine Inj 2 mg IM Q4H PRN #0 syringe PRN Reason: Pain Severe (8-10) Docusate Sodium Cap [Colace Cap] 100 mg PO BID PRN #0 capsule PRN Reason: Constipation HYDROcodone/ACETAMIN 7.5-325 [Adams 7.5-325] 1 tablet PO Q4H PRN #0 tablet PRN Reason: Pain Moderate (4-7) HYDROcodone/ACETAMIN 7.5-325 [Adams 7.5-325] 2 tablet PO Q4H PRN #0 tablet PRN Reason: Moderate Pain unrelieved by 1 Magnesium Hydroxide Susp [Milk of Magnesia] 30 ml PO Q6H PRN #0 udcup PRN Reason: Constipation Ondansetron Inj [Zofran Inj] 4 mg IV Q4H PRN #0 vial PRN Reason: Nausea diphenhydrAMINE CAP [Benadryl Cap] 25 mg PO Q6H PRN #0 capsule PRN Reason: Itching Continue Amlodipine Besylate 5 mg PO DAILY Tamsulosin [Flomax] 0.4 mg PO DAILY Esomeprazole Magnesium [Nexium] 40 mg PO DAILY Finasteride 5 mg PO DAILY predniSONE TAB [PredniSONE] 10 mg PO DAILY Enalapril Maleate 20 mg PO BID - Follow Up or Referral Follow Up: Tremaine Mora Jr., MD [Physician] - 01/15/17 12:55 pm - Forms/Instructions Instructions: Open Reduction and Internal Fixation of a Hip Fracture (DC) Exam - Constitutional Vitals: Period Temp Pulse Resp BP Sys/Callahan Pulse Ox Last 24 Hr 97.3 F-99.0 F 68-109 16-18 105-134/59-78 93-98 Discharge Results Labs on day of discharge: Labs from last 24 hours 12/18/16 05:44 WBC 8.9 RBC 2.79 L Hgb 9.4 L Hct 28.2 L MCV 101.1 MCH 34 MCHC 33.3 RDW 16.9 Plt Count 66 L MPV 11.5 Neut % (Auto) 73.6 Lymph % (Auto) 12.8 L [place] % (Auto) 10.1 Eos % (Auto) 1.0 Baso % (Auto) 0.3 Neut # (Auto) 6.6 Lymph # (Auto) 1.1 L [place] # (Auto) 0.9 H Eos # (Auto) 0.1 Baso # (Auto) 0.0 Total Counted 100 Immature Gran % 2.2 Nucleated RBC % 0.0 Immature Gran # 0.20 Segmented Neutrophils 83 Band Neutrophils 1 Lymphocytes 8 L Monocytes 8 Nucleated RBCs # 0.00 Platelet Estimate Decreased Macrocytosis Slight DS: Provider Date of admission: 12/15/16 01:35 Primary care physician: . No PCP Attending physician on admission: Keara Christensen MD Consults: 12/15/16 09:31 Consult to Case Mgmt/Social Srvs [CONS] Routine Reason for Case Mgmt/Social Srvs: Rehab Home Health Equipment Consult Comment: Bedside Commode, CPM, Walker Consult to Occupational Therapy [CONS] Routine Reason for Occupational Therapy: Evaluate and Treat Consult Comment: ADL's Consult to Physical Therapy [CONS] Routine Reason for Physical Therapy: Evaluate and Treat Gait Training Consult Comment: wbat lle with walker 12/15/16 09:34 Consult to Physician [CONS] Routine Comment: paroxysmal atrial fibrillation, ? undiagnosed Consulting Provider: Consult to Specialist Group: Cardiology When should Consulting Provider be notified: Now Person Notified: Dr. Reagan Date Notified: 12/15/16 Time Notified: 10:52 12/15/16 09:46 Consult to Pharmacy [CONS] Routine Reason for Pharmacy Consult: Adjust Meds Renal Funct Discharging clinician: Flo Romeo MD <Cleo Novoa - Last Filed: 12/18/16 13:31> Hospital Course - Hospital Course Hospital Course: Mr. Waldrop was admitted on 12/15 for an intertrochanteric fracture of the left hip , HTN, macrocytic anemia, thrombocytopenia. Dr. Mora was consulted for left hip fracture. On 12/15, he was taken to the OR for a left ORIF. Cardiology was consulted for AV block. He was asymptomatic, but he was placed on a monitor and an echo was obtained. EF 55% with diastolic dysfunction. Her Platelets have remained low at 66-79 but does not have any acute bleeding. Labs and vitals are stable and he is ready for discharge to [facility] today with appropriate medications and follow up. - Time spent with patient Time with patient DS: Greater than 30 minutes (due to plan, doc and med rec.) Diagnosis - Discharge Diagnosis (1) AV block Status: Acute (2) Intertrochanteric fracture of left hip Status: Acute (3) Status post open reduction with internal fixation of fracture Status: Acute (4) Hypertension Status: Chronic (5) Macrocytic anemia Status: Chronic (6) Thrombocytopenia Status: Chronic DS: Provider Expected date of discharge: 12/18/16
== END 2016-12-18 14:28 | DRG 482 ==
LOC: EDUNIT# → EDBD → N.ED 00:48 → N.EDINP 01:34 → SUATTDRO 01:34 → N.3E 02:17
PROVIDERS: ADMIT Internal Medicine; ATTEND Internal Medicine

== ENCOUNTER 2018-05-17 10:15 | Inpatient (IN) ==
[2018-05-17 11:38] LABS: Basophils % 0.6 % (0.0-0.8); Eosinophils % 0.5 % (0.00-10.9); Hematocrit 22.7 VOL% (42.0-52.0); Hemoglobin 7.2 GM/DL (14.0-18.0); Immature Granulocytes % 1.5 %; Lymphocytes # 0.6 10*3/uL (1.4-4.0); Lymphocytes % 8.3 % (21.2-54.2); Mean Corpuscular HGB Conc 31.7 GM/DL (32-36); Mean Corpuscular Hemoglobin 33 PG (27-34); Mean Corpuscular Volume 104.6 FL (87-102); Mean Platelet Volume 11.5 FL (9.6-12.0); Monocytes # 0.7 10*3/uL (0.11-0.8); Monocytes % 10.2 % (1.7-12.7); Neutrophils # 5.2 10*3/uL (1.4-7.4); Neutrophils % 78.9 % (38.7-73.9); Red Blood Count 2.17 MC/CUMM (3.8-5.5); Red Cell Distribution Width 15.1 % (9.3-17.3); White Blood Count 6.6 T/CUMM (4-12)
[2018-05-17 11:44] LABS: Platelet Count 99 T/CUMM (130-400)
[2018-05-17 11:45] LABS: PT Patient Result 10.9 SECS; Partial Thromboplastin Time 27.3 SECS (0-40)
[2018-05-17 12:03] LABS: Anisocytosis 1+; Hypochromasia 1+; Macrocytosis 1+; Ovalocytes Slight
[2018-05-17 12:04] LABS: Platelet Estimate Decreased
[2018-05-17 12:06] LABS: Calcium 8.4 MG/DL (8.5-10.1); Osmolality,Calculated 278.5 MOS/KG (273-304); Potassium 3.9 MMOL/L (3.5-5.1)
[2018-05-17 13:41] LABS: Basophils % 0.3 % (0.0-0.8); Eosinophils % 0.1 % (0.00-10.9); Hematocrit 20.2 VOL% (42.0-52.0); Hemoglobin 6.5 GM/DL (14.0-18.0); Immature Granulocytes % 1.5 %; Immature Granulocytes Absolute 0.15 #; Lymphocytes # 0.5 10*3/uL (1.4-4.0); Lymphocytes % 4.6 % (21.2-54.2); Mean Corpuscular HGB Conc 32.2 GM/DL (32-36); Mean Corpuscular Hemoglobin 33 PG (27-34); Mean Corpuscular Volume 103.1 FL (87-102); Mean Platelet Volume 11.8 FL (9.6-12.0); Monocytes # 0.8 10*3/uL (0.11-0.8); Monocytes % 7.7 % (1.7-12.7); Neutrophils # 8.7 10*3/uL (1.4-7.4); Neutrophils % 85.8 % (38.7-73.9); Platelet Count 103 T/CUMM (130-400); Red Blood Count 1.96 MC/CUMM (3.8-5.5); Red Cell Distribution Width 15.1 % (9.3-17.3); White Blood Count 10.1 T/CUMM (4-12)
[2018-05-17 13:46] LABS: Folate 7.8 NG/ML (5.4-24.0); Vitamin B12 437 PG/ML (211-911)
[2018-05-17 14:56] LABS: Sedimentation Rate-Westergren 50 MM/HR (0-20)
[2018-05-17 15:33] LABS: Macrocytosis 1+
[2018-05-17 15:34] LABS: Hypochromasia 1+; Platelet Estimate Decreased
[2018-05-18 01:00] LABS: Hematocrit 26.2 VOL% (42.0-52.0); Hemoglobin 8.7 GM/DL (14.0-18.0)
[2018-05-18 06:03] LABS: Basophils % 0.6 % (0.0-0.8); Eosinophils # 0.1 10*3/uL (0.0-0.87); Hematocrit 25.4 VOL% (42.0-52.0); Hemoglobin 8.3 GM/DL (14.0-18.0); Immature Granulocytes % 1.3 %; Immature Granulocytes Absolute 0.09 #; Lymphocytes % 14.5 % (21.2-54.2); Mean Corpuscular HGB Conc 32.7 GM/DL (32-36); Mean Corpuscular Hemoglobin 32 PG (27-34); Mean Corpuscular Volume 99.2 FL (87-102); Mean Platelet Volume 11.8 FL (9.6-12.0); Monocytes # 0.9 10*3/uL (0.11-0.8); Monocytes % 12.7 % (1.7-12.7); Neutrophils # 4.7 10*3/uL (1.4-7.4); Neutrophils % 69.9 % (38.7-73.9); Platelet Count 92 T/CUMM (130-400); Red Blood Count 2.56 MC/CUMM (3.8-5.5); Red Cell Distribution Width 15.9 % (9.3-17.3); White Blood Count 6.7 T/CUMM (4-12)
[2018-05-18 06:33] LABS: Giant Platelets Few; Hypochromasia Slight; Macrocytosis Slight; Ovalocytes Slight; Platelet Estimate Decreased
[2018-05-18 09:10] LABS: Hemoglobin A1 (Alkaline) 97.9 % (96.5-98.5); Hemoglobin A2 (Alkaline) 2.1 % (1.5-3.5)
[2018-05-18 18:22] LABS: Apearance,Urine CLEAR (Clear); Bilirubin,Urine Negative (Negative); Blood, Urine Small mg/dL (Negative); Glucose,Urine (UA) Negative (Negative); Ketones,Urine Negative (Negative); Nitrite,Urine Negative (Negative); Protein,Urine Negative; RBC,Urine <1 /HPF (0-4); Urine Color Straw (Yellow); Urine Specific Gravity 1.004 (1.001-1.035); Urine Urobilinogen < 2.0 EU/DL (0.2-1.0); WBC,Urine 1 /HPF (0-6)
[2018-05-19 05:30] LABS: Basophils # 0.1 10*3/uL (0.0-0.2); Basophils % 0.6 % (0.0-0.8); Eosinophils % 0.5 % (0.00-10.9); Hematocrit 31.3 VOL% (42.0-52.0); Hemoglobin 10.3 GM/DL (14.0-18.0); Immature Granulocytes % 1.9 %; Immature Granulocytes Absolute 0.15 #; Lymphocytes # 1.4 10*3/uL (1.4-4.0); Lymphocytes % 17.1 % (21.2-54.2); Mean Corpuscular HGB Conc 32.9 GM/DL (32-36); Mean Corpuscular Hemoglobin 33 PG (27-34); Mean Corpuscular Volume 99.1 FL (87-102); Mean Platelet Volume 11.4 FL (9.6-12.0); Monocytes % 12.5 % (1.7-12.7); Neutrophils # 5.4 10*3/uL (1.4-7.4); Neutrophils % 67.4 % (38.7-73.9); Platelet Count 99 T/CUMM (130-400); Red Blood Count 3.16 MC/CUMM (3.8-5.5); Red Cell Distribution Width 15.9 % (9.3-17.3); White Blood Count 7.9 T/CUMM (4-12)
[2018-05-19 05:57] LABS: Band Neutrophils 1 % (0-10); Eosinophils 2 % (0-10); Hypochromasia Slight; Lymphocytes 15 % (20-55); Macrocytosis Slight; Ovalocytes Slight; Platelet Estimate Decreased; Segmented Neutrophils 72 % (50-85); Total Cells Counted 100
[2018-05-19 07:18] LABS: Calcium 8.2 MG/DL (8.5-10.1); Osmolality,Calculated 276.4 MOS/KG (273-304); Potassium 3.4 MMOL/L (3.5-5.1)
[2018-05-22 11:43] VITALS: BP 130/65
== END 2018-05-22 14:41 | disposition home or self-care (01) | DRG 155 ==
LOC: EDBD → EDUNIT# → N.EDINP 10:15 → N.ED 10:15 → N.EDINP 14:46 → N.3E 14:57 → SUATTDRO 05-18 09:42
PROVIDERS: ADMIT Surgery; ATTEND Internal Medicine